=== PATIENT | female | born 1985 | race Two or more races ===

== ENCOUNTER 2016-10-27 09:10 | Emergency (ER) | payer MEDICAID ==
[~2016-10-27] VITALS: Ht 165.1 cm; Wt 102.5 kg
[2016-10-27 09:15] VITALS: BP 129/93
[2016-10-27 10:22] LABS: Basophils # (auto) 0 uL; Basophils % (auto) 0.5 % (0.0-2.0); Eosinophils # (auto) 0 uL; Eosinophils % (auto) 0.3 % (0.0-7.0); Hematocrit 40.8 % (36.0-46.0); Hemoglobin 13.4 g/dL (12.2-16.2); Lymphocytes % (auto) 18.2 % (10.0-50.0); Mean Corpuscular Hemoglobin 27.5 pg (28.0-32.0); Mean Corpuscular Hgb Conc. 32.9 g/dL (32.0-36.0); Mean Corpuscular Volume 83.6 fL (80.0-100.0); Mean Platelet Volume 8.8 fL (7.4-10.4); Monocytes # (auto) 0.4 uL; Monocytes % (auto) 3.6 % (0.0-12.0); Neutrophils # (auto) 8.3 uL; Neutrophils % (auto) 77.4 % (37.0-80.0); Platelet Count (auto) 377 10^3/uL (140-450); Red Cell Distribution Width 17.1 % (11.6-16.0); White Blood Cell 10.8 10^3/uL (4.4-10.8)
[2016-10-27 10:34] LABS: Albumin 2.8 g/dL (3.4-5.0); BUN/Creatinine Ratio 15.7; Calcium 8.6 mg/dL (8.5-10.1)
[2016-10-27 10:36] LABS: Bilirubin, Total 0.4 mg/dL (0.2-1.0); Total Protein 7.2 g/dL (6.4-8.2)
== END 2016-10-27 11:36 | disposition home or self-care (01) ==
LOC: ER 09:10
CPT/HCPCS: 36415; 76801; 80053; 81025; 84702; 85025

== ENCOUNTER 2023-11-09 21:23 | Emergency (ER) | payer MEDICAID ==
[~2023-11-09] VITALS: Ht 152.4 cm; Wt 108.0 kg
[2023-11-09 21:46] VITALS: BP 134/80; PULSE 110; RESP 16; O2SAT 98
== END 2023-11-10 02:33 | disposition left against medical advice (07) ==
LOC: ER 21:23
DX: M54.2 Cervicalgia (principal); M54.59 Other low back pain; Z53.21 Procedure and treatment not carried out due to patient leaving prior to being seen by health care provider; V89.2XXA Person injured in unspecified motor-vehicle accident, traffic, initial encounter; Y93.I9 Activity, other involving external motion; Y92.89 Other specified places as the place of occurrence of the external cause; Y99.8 Other external cause status